=== PATIENT | male | born 1995 | race Caucasian/White ===

== ENCOUNTER 2021-06-04 00:27 | Emergency (ER) | payer OTHER ==
[~2021-06-04] VITALS: Ht 180.3 cm; Wt 127.0 kg
[2021-06-04 00:35] VITALS: BP 140/98
--- NOTE | 2021-06-04 00:38 | NUR ---
TO LOBBY A/W BED AMBULATORY
--- NOTE | 2021-06-04 02:20 | NUR ---
PT TAKEN TO ER BED 1
--- NOTE | 2021-06-04 02:22 | NUR ---
COVERING PRIMARY RN FOR LUNCH RELIEF. SEE COMPLETE ASSESSMENT
[2021-06-04] MEDS ORDERED: IBUPROFEN 800 MG TAB PO ONE (02:40)
[2021-06-04] MEDS ORDERED: ACETAMINOPHEN EXTRA STRENGTH 500 MG TAB PO ONE (02:40)
--- NOTE | 2021-06-04 02:45 | NUR ---
RECEIVED IN BED 1 WITH C/O LEFT ANKLE PAIN SINCE 1600 YESTERDAY. PT STEPPED IN HOLE AND ROLLED ANKLE. SWELLING NOTED TOLEFT FOOT/ ANKLE
[2021-06-04 03:15] VITALS: BP 140/98
--- NOTE | 2021-06-04 03:15 | NUR ---
Patient discharged with v/s stable. Written and verbal after care instructions given and explained. Patient verbalized understanding. Ambulatory with steady gait. All questions addressed prior to discharge. Advised to follow up with PMD.
== END 2021-06-04 03:15 | disposition home or self-care (01) ==
LOC: MED 00:27
DX: S96.912A Strain of unspecified muscle and tendon at ankle and foot level, left foot, initial encounter (principal); W18.39XA Other fall on same level, initial encounter; Y92.89 Other specified places as the place of occurrence of the external cause; Y93.89 Activity, other specified; Y99.8 Other external cause status
CPT/HCPCS: 73610; 99283